=== PATIENT | female | born 1990 | race Two or more races ===

== ENCOUNTER → 2017-04-03 | Outpatient (CLI) | payer OTHER ==
[~2017-04-03] VITALS: Ht 152.4 cm; Wt 77.1 kg
== END | disposition home or self-care (01) ==
LOC: PPHC 10:45
DX: J06.9 Acute upper respiratory infection, unspecified (principal)

== ENCOUNTER → 2017-05-14 | Outpatient (CLI) | payer OTHER | END | disposition home or self-care (01) | LOC: PPHC 13:15 | DX: R55 Syncope and collapse (principal) ==

== ENCOUNTER 2017-05-16 08:52 | Outpatient (CLI) | payer OTHER | END 2017-05-16 09:01 | disposition home or self-care (01) | LOC: LAB 08:52 | DX: R55 Syncope and collapse (principal); R53.1 Weakness ==

== ENCOUNTER 2017-05-29 10:13 | Inpatient (IN) | payer OTHER ==
[~2017-05-29] VITALS: Ht 167.6 cm; Wt 160.0 kg
[2017-05-31] MEDS ORDERED: KEPPRA500 MG PO (08:12)
== END 2017-05-31 10:44 | disposition home or self-care (01) | DRG 101 ==
LOC: ER 10:13 → SURG 20:39 → SEC-K 20:39 → SURG 22:21
PROC: BW28ZZZ Computerized Tomography (CT Scan) of Head (ICD-10-PCS; principal; 2017-05-29)
PROC: B030Y0Z Magnetic Resonance Imaging (MRI) of Brain using Other Contrast, Unenhanced and Enhanced (ICD-10-PCS; 2017-05-29)
PROC: 4A00X4Z Measurement of Central Nervous Electrical Activity, External Approach (ICD-10-PCS; 2017-05-30)
DX: G40.89 Other seizures (principal); R55 Syncope and collapse
CPT/HCPCS: 70545

== ENCOUNTER → 2017-06-15 | Emergency (ER) | payer OTHER ==
[~2017-06-15] VITALS: Ht 170.2 cm; Wt 81.6 kg
[~2017-06-15] MED LIST: KEPPRA500 MG PO
== END | disposition home or self-care (01) ==
LOC: ER 07:18
DX: G40.89 Other seizures (principal)

== ENCOUNTER → 2017-07-03 | Outpatient (CLI) | payer OTHER | END | disposition home or self-care (01) | LOC: NUCLEAR 12:45 | DX: I65.29 Occlusion and stenosis of unspecified carotid artery (principal) ==

== ENCOUNTER → 2017-08-23 15:39 | Outpatient (CLI) | payer OTHER | END | disposition home or self-care (01) | LOC: LAB 15:39 | DX: I11.9 Hypertensive heart disease without heart failure (principal); E11.9 Type 2 diabetes mellitus without complications; E78.2 Mixed hyperlipidemia ==

== ENCOUNTER → 2017-12-29 09:29 | Outpatient (CLI) | payer OTHER | END | disposition home or self-care (01) | LOC: LAB 09:29 | DX: Z00.00 Encounter for general adult medical examination without abnormal findings (principal); I10 Essential (primary) hypertension; E03.8 Other specified hypothyroidism; E78.00 Pure hypercholesterolemia, unspecified; N39.0 Urinary tract infection, site not specified; Z11.4 Encounter for screening for human immunodeficiency virus [HIV]; E55.9 Vitamin D deficiency, unspecified; Z21 Asymptomatic human immunodeficiency virus [HIV] infection status; R79.89 Other specified abnormal findings of blood chemistry ==

== ENCOUNTER 2018-01-17 18:18 | Emergency (ER) | payer OTHER ==
[~2018-01-17] VITALS: Ht 170.2 cm; Wt 83.9 kg
[2018-01-17] MEDS ORDERED: SKELAXIN800 MG PO (20:06)
[2018-01-17] MEDS ORDERED: KETO10TA2 PO (20:06)
== END 2018-01-17 20:56 ==
LOC: ER 18:18
DX: S13.8XXA Sprain of joints and ligaments of other parts of neck, initial encounter (principal); S63.592A Other specified sprain of left wrist, initial encounter; V49.88XA Car occupant (driver) (passenger) injured in other specified transport accidents, initial encounter; M54.5 Low back pain; Y93.89 Activity, other specified; Y92.89 Other specified places as the place of occurrence of the external cause; Y99.8 Other external cause status

== ENCOUNTER 2018-03-15 12:18 | Outpatient (CLI) | payer OTHER ==
[~2018-03-15 12:18] MED LIST changes: +KETO10TA2 PO; +SKELAXIN800 MG PO
== END 2018-03-15 12:22 | disposition home or self-care (01) ==
LOC: LAB 12:18
DX: N39.0 Urinary tract infection, site not specified (principal); J11.1 Influenza due to unidentified influenza virus with other respiratory manifestations; J06.9 Acute upper respiratory infection, unspecified

== ENCOUNTER 2018-12-04 12:07 | Outpatient (CLI) | payer OTHER | END 2018-12-04 12:13 | disposition home or self-care (01) | LOC: LAB 12:07 | DX: J11.1 Influenza due to unidentified influenza virus with other respiratory manifestations (principal); R10.84 Generalized abdominal pain ==

== ENCOUNTER 2019-02-06 15:26 | Outpatient (CLI) | payer OTHER | END 2019-02-06 16:02 | disposition home or self-care (01) | LOC: LAB 15:26 | DX: J03.80 Acute tonsillitis due to other specified organisms (principal) ==

== ENCOUNTER 2019-03-31 11:43 | Outpatient (CLI) | payer OTHER | END 2019-03-31 11:49 | disposition home or self-care (01) | LOC: LAB 11:43 | DX: J11.1 Influenza due to unidentified influenza virus with other respiratory manifestations (principal) ==

== ENCOUNTER → 2019-06-09 13:18 | Outpatient (CLI) | payer OTHER | END | disposition home or self-care (01) | LOC: LAB 13:18 | DX: N92.5 Other specified irregular menstruation (principal); N39.0 Urinary tract infection, site not specified ==

== ENCOUNTER → 2019-06-23 11:05 | Outpatient (CLI) | payer OTHER | END | disposition home or self-care (01) | LOC: LAB 11:05 | DX: E03.8 Other specified hypothyroidism (principal); Z00.00 Encounter for general adult medical examination without abnormal findings; I10 Essential (primary) hypertension; E78.00 Pure hypercholesterolemia, unspecified; N91.0 Primary amenorrhea; E55.9 Vitamin D deficiency, unspecified; Z21 Asymptomatic human immunodeficiency virus [HIV] infection status; R79.89 Other specified abnormal findings of blood chemistry; Z11.4 Encounter for screening for human immunodeficiency virus [HIV] ==

== ENCOUNTER 2019-09-03 15:18 | Emergency (ER) | payer OTHER ==
[~2019-09-03] VITALS: Ht 170.2 cm; Wt 81.6 kg
[2019-09-03] MEDS ORDERED: ZANAFLEX4 M1 PO (16:13)
[2019-09-03] MEDS ORDERED: KETO10TA2 PO (16:13)
[2019-09-03] MEDS ORDERED: LIDODERM1 EACH TOP (16:16)
== END 2019-09-03 16:32 | disposition home or self-care (01) ==
LOC: ER 15:18
DX: S33.5XXA Sprain of ligaments of lumbar spine, initial encounter (principal); X50.9XXA Other and unspecified overexertion or strenuous movements or postures, initial encounter; Y93.89 Activity, other specified; Y92.69 Other specified industrial and construction area as the place of occurrence of the external cause; Y99.8 Other external cause status

== ENCOUNTER → 2019-12-04 | Emergency (ER) | payer OTHER ==
[~2019-12-04] VITALS: Ht 170.2 cm; Wt 83.9 kg
[~2019-12-04] MED LIST changes: +LIDODERM1 EACH TOP; +ZANAFLEX4 M1 PO
== END | disposition home or self-care (01) ==
LOC: ER 16:17
DX: R53.81 Other malaise (principal); B96.0 Mycoplasma pneumoniae [M. pneumoniae] as the cause of diseases classified elsewhere

== ENCOUNTER → 2020-02-03 15:51 | Outpatient (CLI) | payer OTHER | END | disposition home or self-care (01) | LOC: LAB 15:51 | PROVIDERS: ATTEND Obstetrics & Gynecology | DX: N39.0 Urinary tract infection, site not specified (principal) ==

== ENCOUNTER 2020-06-03 15:29 | Emergency (ER) | payer OTHER ==
[~2020-06-03] VITALS: Ht 170.2 cm; Wt 83.9 kg
== END 2020-06-03 17:49 | disposition home or self-care (01) ==
LOC: ER 15:29
DX: J06.9 Acute upper respiratory infection, unspecified (principal); R51.9 Headache, unspecified; Z11.52 Encounter for screening for COVID-19

== ENCOUNTER 2020-08-28 08:07 | Emergency (ER) | payer OTHER ==
[~2020-08-28] VITALS: Ht 170.2 cm; Wt 83.9 kg
== END 2020-08-28 12:38 | disposition home or self-care (01) ==
LOC: ER 08:07
DX: B34.9 Viral infection, unspecified (principal); B96.0 Mycoplasma pneumoniae [M. pneumoniae] as the cause of diseases classified elsewhere; Z11.52 Encounter for screening for COVID-19

== ENCOUNTER 2020-09-21 18:21 | Emergency (ER) | payer OTHER ==
[~2020-09-21] VITALS: Ht 170.2 cm; Wt 81.6 kg
== END 2020-09-21 22:06 | disposition home or self-care (01) ==
LOC: ER 18:21
DX: R55 Syncope and collapse (principal)

== ENCOUNTER 2020-10-01 10:34 | Emergency (ER) | payer OTHER ==
[~2020-10-01] VITALS: Ht 170.2 cm; Wt 81.6 kg
[2020-10-01] MEDS ORDERED: TUSSIN DM SYRU118 ML PO (15:37)
[2020-10-01] MEDS ORDERED: IVERMECTIN3 MG PO (15:37)
== END 2020-10-01 16:02 | disposition home or self-care (01) ==
LOC: ER 10:34
DX: U07.1 COVID-19 (principal); R53.81 Other malaise; R09.81 Nasal congestion; R05 Cough; Z03.818 Encounter for observation for suspected exposure to other biological agents ruled out

== ENCOUNTER 2020-10-04 09:00 | Outpatient (CLI) | payer OTHER ==
[~2020-10-04 09:00] MED LIST changes: +IVERMECTIN3 MG PO; +TUSSIN DM SYRU118 ML PO
== END 2020-10-04 11:00 | disposition home or self-care (01) ==
LOC: ASH CLINIC 09:00
PROVIDERS: ATTEND General Practice
DX: Z23 Encounter for immunization (principal); U07.1 COVID-19

== ENCOUNTER 2020-10-15 13:49 | Emergency (ER) | payer OTHER ==
[~2020-10-15] VITALS: Ht 170.2 cm; Wt 81.6 kg
== END 2020-10-15 19:48 | disposition home or self-care (01) ==
LOC: ER 13:49
DX: E86.0 Dehydration (principal); J06.9 Acute upper respiratory infection, unspecified; Z86.16 Personal history of COVID-19

== ENCOUNTER 2021-01-05 09:00 | Outpatient (CLI) | payer OTHER | END 2021-01-05 09:30 | disposition home or self-care (01) | LOC: PPH VACUNA 09:00 | PROVIDERS: ATTEND Emergency Medicine Pediatric Emergency Medicine | DX: Z23 Encounter for immunization (principal) ==

== ENCOUNTER 2021-02-25 11:10 | Emergency (ER) | payer OTHER ==
[~2021-02-25] VITALS: Ht 170.2 cm; Wt 83.9 kg
[2021-02-25] MEDS ORDERED: PROVENTIL HFA6.7 GM IH (14:18)
[2021-02-25] MEDS ORDERED: TUSSI PRES-B L480 ML PO (14:18)
[2021-02-25] MEDS ORDERED: ZITHROMAX500 MG PO (14:18)
== END 2021-02-25 14:36 | disposition home or self-care (01) ==
LOC: ER 11:10
DX: B34.9 Viral infection, unspecified (principal)

== ENCOUNTER 2021-07-07 16:45 | Outpatient (CLI) | payer OTHER ==
[~2021-07-07 16:45] MED LIST changes: +PROVENTIL HFA6.7 GM IH; +TUSSI PRES-B L480 ML PO; +ZITHROMAX500 MG PO
== END 2021-07-07 16:48 | disposition home or self-care (01) ==
LOC: LAB 16:45
DX: U07.1 COVID-19 (principal)

== ENCOUNTER 2021-10-21 09:33 | Outpatient (CLI) | payer OTHER | END 2021-10-21 09:40 | disposition home or self-care (01) | LOC: SONOGRAMA 09:33 | PROVIDERS: ATTEND Obstetrics & Gynecology | DX: R10.2 Pelvic and perineal pain (principal) ==

== ENCOUNTER 2021-12-01 16:07 | Outpatient (CLI) | payer OTHER | END 2021-12-02 10:11 | disposition home or self-care (01) | LOC: LAB 16:07 | PROVIDERS: ATTEND Obstetrics & Gynecology | DX: N30.00 Acute cystitis without hematuria (principal); N39.0 Urinary tract infection, site not specified ==

== ENCOUNTER 2021-12-13 16:00 | Outpatient (CLI) | payer OTHER | END 2021-12-13 16:05 | disposition home or self-care (01) | LOC: PPH VACUNA 16:00 | PROVIDERS: ATTEND Emergency Medicine Pediatric Emergency Medicine | DX: Z23 Encounter for immunization (principal) ==

== ENCOUNTER → 2022-04-08 07:14 | Outpatient (CLI) | payer OTHER | END | disposition home or self-care (01) | LOC: LAB 07:14 | PROVIDERS: ATTEND Specialist | DX: E11.65 Type 2 diabetes mellitus with hyperglycemia (principal); E11.21 Type 2 diabetes mellitus with diabetic nephropathy; N39.0 Urinary tract infection, site not specified ==

== ENCOUNTER 2022-08-26 08:41 | Outpatient (CLI) | payer OTHER | END 2022-08-26 08:45 | disposition home or self-care (01) | LOC: LAB 08:41 | DX: E11.65 Type 2 diabetes mellitus with hyperglycemia (principal); D64.9 Anemia, unspecified; E78.2 Mixed hyperlipidemia; N39.0 Urinary tract infection, site not specified; E03.9 Hypothyroidism, unspecified ==

== ENCOUNTER 2022-11-06 06:35 | Day surgery (SDC) | payer OTHER ==
[2022-11-02 11:52] LABS: HEMATOCRIT 38.5 % (36.0-45.00); HEMOGLOBIN 12.8 g/dL (12.0-15.00); MEAN CELL VOLUME 89.4 fL (80.00-100.00); MEAN CORPUSCULAR HEMOGLOBIN 29.8 pg (27.00-32.0); MEAN CORPUSCULAR HGB CONC 33.3 g/dl (32.0-36.0); PLATELET COUNT 288 K/uL (150-450); RED BLOOD COUNT 4.31 M/uL (4.00-6.00); RED CELL DISTRIBUTION WIDTH 13.8 % (11.5-14.5)
[2022-11-02 12:11] LABS: INR 1.11; PARTIAL THROMBOPLASTIN TIME 30.8 SECONDS (22.0-34.0); PROTHROMBIN TIME 11.6 SECONDS (9.0-11.5)
[2022-11-02 12:18] LABS: ALBUMIN 3.9 gm/dL (3.4-5.0); BILIRUBIN TOTAL 0.37 mg/dL (0.3-1.2); CALCIUM 8.7 mg/dL (8.5-10.1); CREATININE SERUM 1.04 mg/dL (0.55-1.02); GFR 61.81; GLOBULINA 3.7 G/DL (2.4-3.5); POTASSIUM 4.44 mEq/L (3.5-5.1); TOTAL PROTEIN 7.6 gm/dL (6.4-8.2)
== END 2022-11-06 11:05 | disposition home or self-care (01) ==
LOC: CIR.AMB 06:35
PROVIDERS: ATTEND Obstetrics & Gynecology
DX: N70.91 Salpingitis, unspecified (principal); R10.2 Pelvic and perineal pain; I10 Essential (primary) hypertension; E78.00 Pure hypercholesterolemia, unspecified; E03.9 Hypothyroidism, unspecified; Z20.822 Contact with and (suspected) exposure to COVID-19; Z91.040 Latex allergy status

== ENCOUNTER 2023-03-29 14:28 | Outpatient (CLI) | payer OTHER ==
[2023-03-29 14:51] LABS: URINE APPEARANCE Clear; URINE BILIRRUBIN Negative (NEGATIVE); URINE BLOOD Negative; URINE COLOR Yellow; URINE GLUCOSE Negative (NEGATIVE); URINE LEUKOCYTE Trace; URINE NITRATE Positive; URINE PROTEIN Negative (NEGATIVE); URINE UROBILINOGEN 0.2 E.U./dl
[2023-03-29 14:52] LABS: URINE BACTERIA > 9821.5 uL (0.0-1933); URINE EPITHELIAL CELLS 22.8 uL (0.0-38.8); URINE RBC 7.6 uL (0.0-20.8); URINE WBC 16.2 uL (0.0-23.2)
== END 2023-03-29 14:50 | disposition home or self-care (01) ==
LOC: LAB 14:28
PROVIDERS: ATTEND Obstetrics & Gynecology
DX: N39.0 Urinary tract infection, site not specified (principal)

== ENCOUNTER 2023-04-24 15:00 | Outpatient (CLI) | payer OTHER | END 2023-04-24 15:10 | disposition home or self-care (01) | LOC: PPH VACUNA 15:00 | PROVIDERS: ATTEND Emergency Medicine Pediatric Emergency Medicine | DX: Z23 Encounter for immunization (principal) ==

== ENCOUNTER 2023-09-17 15:00 | Outpatient (CLI) | payer OTHER ==
[~2023-09-17 15:00] MED LIST changes: +DICLOFENAC SODI75 MG PO; +FIORINAL 50-321 EACH PO; +MECLIZINE HCL25 MG PO; +NORFLEX100MG PO
== END 2023-09-17 15:01 | disposition home or self-care (01) ==
LOC: LAB 15:00
PROVIDERS: ATTEND Preventive Medicine Occupational Medicine
DX: J11.1 Influenza due to unidentified influenza virus with other respiratory manifestations (principal); Z20.828 Contact with and (suspected) exposure to other viral communicable diseases

== ENCOUNTER 2023-09-22 15:05 | Emergency (ER) | payer OTHER ==
[~2023-09-22] VITALS: Ht 170.2 cm; Wt 69.9 kg
[2023-09-22] MEDS ORDERED: HYOSCYAMINE SULFATE 0.125 MG TAB.SUBL ONE (16:52)
[2023-09-22] MEDS ORDERED: FAMOTIDINE/PF 20 MG/2 ML VIAL ONE (16:53)
[2023-09-22] MEDS ORDERED: ONDANSETRON HCL 2 MG/ML VIAL ONE (16:53)
[2023-09-22] MEDS ORDERED: ONDANSETRON HCL 2 MG/ML VIAL IV ONE (17:00)
[2023-09-22] MEDS ORDERED: HYOSCYAMINE SULFATE 0.125 MG TAB.SUBL SL ONE (17:00)
[2023-09-22] MEDS ORDERED: 0.9 % SODIUM CHLORIDE 1,000 ML IV ONE (17:00)
[2023-09-22] MEDS ORDERED: FAMOTIDINE/PF 20 MG/2 ML VIAL IV PUSH ONE (17:00)
[2023-09-22 17:07] LABS: HEMATOCRIT 40.9 % (36.0-45.00); MEAN CELL VOLUME 88.9 fL (80.00-100.00); MEAN CORPUSCULAR HEMOGLOBIN 30.4 pg (27.00-32.0); MEAN CORPUSCULAR HGB CONC 34.2 g/dl (32.0-36.0); PLATELET COUNT 287 K/uL (150-450); RED BLOOD COUNT 4.61 M/uL (4.00-6.00); RED CELL DISTRIBUTION WIDTH 13.7 % (11.5-14.5)
[2023-09-22 17:45] LABS: ALBUMIN 3.8 gm/dL (3.4-5.0); BILIRUBIN TOTAL 0.5 mg/dL (0.3-1.2); CALCIUM 8.6 mg/dL (8.5-10.1); CREATININE SERUM 0.84 mg/dL (0.55-1.02); GFR 78.57; GLOBULINA 3.9 G/DL (2.4-3.5); TOTAL PROTEIN 7.7 gm/dL (6.4-8.2)
[2023-09-22 18:09] LABS: POTASSIUM 2.93 mEq/L (3.5-5.1)
[2023-09-22] MEDS ORDERED: POTASSIUM CHLORIDE 10 MEQ CAPSULE PO ONE (18:15)
[2023-09-22] MEDS ORDERED: POTASSIUM CHLORIDE 10 MEQ CAPSULE PO STA (18:17)
[2023-09-22 20:12] LABS: CALCIUM 7.9 mg/dL (8.5-10.1); CREATININE SERUM 0.74 mg/dL (0.55-1.02); GFR 90.95; POTASSIUM 3.31 mEq/L (3.5-5.1)
== END 2023-09-22 20:25 | disposition home or self-care (01) ==
LOC: ER 15:06
PROVIDERS: General Practice
DX: B34.9 Viral infection, unspecified (principal); Z20.822 Contact with and (suspected) exposure to COVID-19; Z91.040 Latex allergy status

== ENCOUNTER 2023-09-27 15:34 | Outpatient (CLI) | payer OTHER | END 2023-09-27 15:41 | disposition home or self-care (01) | LOC: LAB 15:34 | PROVIDERS: ATTEND Internal Medicine Gastroenterology | DX: R19.7 Diarrhea, unspecified (principal); A09 Infectious gastroenteritis and colitis, unspecified ==

== ENCOUNTER 2023-10-09 15:11 | Outpatient (CLI) | payer OTHER | END 2023-10-09 15:12 | disposition home or self-care (01) | LOC: LAB 15:11 | PROVIDERS: ATTEND Preventive Medicine Occupational Medicine | DX: B19.10 Unspecified viral hepatitis B without hepatic coma (principal) ==

== ENCOUNTER 2023-11-03 07:41 | Outpatient (CLI) | payer OTHER ==
[2023-11-03 08:09] LABS: URINE APPEARANCE Cloudy; URINE BILIRRUBIN Negative (NEGATIVE); URINE BLOOD Negative; URINE COLOR Yellow; URINE GLUCOSE Negative (NEGATIVE); URINE KETONE Negative (NEGATIVE); URINE LEUKOCYTE Small; URINE NITRATE Negative; URINE PROTEIN Negative (NEGATIVE); URINE UROBILINOGEN 0.2 E.U./dl
[2023-11-03 08:13] LABS: URINE BACTERIA 8876.4 uL (0.0-1933); URINE EPITHELIAL CELLS 55.3 uL (0.0-38.8); URINE RBC 25.3 uL (0.0-20.8); URINE WBC 118.4 uL (0.0-23.2)
[2023-11-03 08:23] LABS: HEMATOCRIT 38.4 % (36.0-45.00); HEMOGLOBIN 13.4 g/dL (12.0-15.00); MEAN CELL VOLUME 89.7 fL (80.00-100.00); MEAN CORPUSCULAR HEMOGLOBIN 31.2 pg (27.00-32.0); MEAN CORPUSCULAR HGB CONC 34.8 g/dl (32.0-36.0); PLATELET COUNT 280 K/uL (150-450); RED BLOOD COUNT 4.28 M/uL (4.00-6.00); RED CELL DISTRIBUTION WIDTH 14.3 % (11.5-14.5)
[2023-11-03 08:25] LABS: URINE CAST 0.15 uL (0.0-1.40)
[2023-11-03 09:21] LABS: BILIRUBIN TOTAL 0.7 mg/dL (0.3-1.2); CALCIUM 9.2 mg/dL (8.5-10.1); CHOL HDL RATIO 1.7 (0-5.0); CREATININE SERUM 0.96 mg/dL (0.55-1.02); GFR 67.35; GLOBULINA 3.6 G/DL (2.4-3.5); POTASSIUM 4.13 mEq/L (3.5-5.1); T4 FREE 1.14 NG/ML (0.76-1.46); TOTAL PROTEIN 7.6 gm/dL (6.4-8.2); TSH 0.709 uIU/mL (0.358-3.74)
== END 2023-11-03 07:47 | disposition home or self-care (01) ==
LOC: LAB 07:41
PROVIDERS: ATTEND Obstetrics & Gynecology
DX: E03.9 Hypothyroidism, unspecified (principal); I10 Essential (primary) hypertension; Z00.00 Encounter for general adult medical examination without abnormal findings; E78.00 Pure hypercholesterolemia, unspecified; N39.0 Urinary tract infection, site not specified; Z11.4 Encounter for screening for human immunodeficiency virus [HIV]; E55.9 Vitamin D deficiency, unspecified; Z21 Asymptomatic human immunodeficiency virus [HIV] infection status; R79.9 Abnormal finding of blood chemistry, unspecified; R79.89 Other specified abnormal findings of blood chemistry

== ENCOUNTER 2023-12-01 08:50 | Emergency (ER) | payer OTHER ==
[~2023-12-01] VITALS: Ht 170.2 cm; Wt 69.9 kg
[2023-12-01] MEDS ORDERED: KETOROLAC TROMETHAMINE 60 MG VIAL IM ONE (09:30)
== END 2023-12-01 11:04 | disposition home or self-care (01) ==
LOC: ER 08:51
DX: S86.912A Strain of unspecified muscle(s) and tendon(s) at lower leg level, left leg, initial encounter (principal); X58.XXXA Exposure to other specified factors, initial encounter; Y93.89 Activity, other specified; Y92.238 Other place in hospital as the place of occurrence of the external cause; Y99.9 Unspecified external cause status; Z91.040 Latex allergy status

== ENCOUNTER 2024-02-05 10:58 | Outpatient (CLI) | payer OTHER | END 2024-02-05 11:02 | disposition home or self-care (01) | LOC: SONOGRAMA 10:58 | PROVIDERS: ATTEND Internal Medicine Gastroenterology | DX: R10.13 Epigastric pain (principal); K58.9 Irritable bowel syndrome, unspecified; R14.3 Flatulence ==

== ENCOUNTER 2024-02-06 17:11 | Outpatient (CLI) | payer OTHER ==
[2024-02-06 17:55] LABS: HEMATOCRIT 40.4 % (36.0-45.00); HEMOGLOBIN 13.7 g/dL (12.0-15.00); MEAN CELL VOLUME 91.3 fL (80.00-100.00); PLATELET COUNT 237 K/uL (150-450); RED BLOOD COUNT 4.42 M/uL (4.00-6.00); RED CELL DISTRIBUTION WIDTH 13.3 % (11.5-14.5)
[2024-02-06 18:20] LABS: MYCOPLASMA PNEUMONIAE IGM REACTIVE (NO REACTIVE)
== END 2024-02-06 17:16 | disposition home or self-care (01) ==
LOC: LAB 17:11
PROVIDERS: ATTEND Internal Medicine Cardiovascular Disease
DX: B34.9 Viral infection, unspecified (principal); U07.1 COVID-19

== ENCOUNTER 2024-05-12 10:26 | Outpatient (CLI) | payer OTHER ==
[2024-05-14 07:04] LABS: HEPATITIS A ANTIBODY IGG Negative (Negative); HEPATITIS B SURFACE ANTIBODY Reactive (.); HEPATITIS C VIRUS ANTIBODY Non Reactive (Non Reactive)
== END 2024-05-12 10:49 | disposition home or self-care (01) ==
LOC: LAB 10:26
DX: A64 Unspecified sexually transmitted disease (principal); B19.9 Unspecified viral hepatitis without hepatic coma

== ENCOUNTER 2024-08-29 11:27 | Emergency (ER) | payer OTHER ==
[~2024-08-29] VITALS: Ht 170.2 cm; Wt 68.0 kg
[2024-08-29] MEDS ORDERED: KETOROLAC TROMETHAMINE 60 MG VIAL IM ONE (11:45)
== END 2024-08-29 13:39 | disposition home or self-care (01) ==
LOC: ER 11:27
DX: T14.8XXA Other injury of unspecified body region, initial encounter (principal); V49.9XXA Car occupant (driver) (passenger) injured in unspecified traffic accident, initial encounter; Y93.89 Activity, other specified; Y92.413 State road as the place of occurrence of the external cause; Y99.9 Unspecified external cause status; Z91.040 Latex allergy status

== ENCOUNTER 2024-11-07 17:07 | Emergency (ER) | payer OTHER ==
[~2024-11-07] VITALS: Ht 162.6 cm; Wt 63.5 kg
[2024-11-07] MEDS ORDERED: MORPHINE SULFATE 2 MG/ML SYRINGE IV ONE (17:45)
[2024-11-07] MEDS ORDERED: KETOROLAC TROMETHAMINE 30 MG VIAL ONE (17:53)
[2024-11-07] MEDS ORDERED: KETOROLAC TROMETHAMINE 60 MG VIAL IM ONE ×2 (18:00→18:49)
[2024-11-07] MEDS ORDERED: ORPHENADRINE CITRATE 30 MG/ML AMPUL ONE (18:48)
[2024-11-07] MEDS ORDERED: ORPHENADRINE CITRATE 30 MG/ML AMPUL IM ONE (19:00)
[2024-11-07] MEDS ORDERED: BACITRACIN-NEOMYCIN-POLYMYXIN 0.9 GM PACKET TOP ONE (19:22)
[2024-11-07] MEDS ORDERED: TRAMADOL HCL50 MG PO (20:13)
[2024-11-07] MEDS ORDERED: MORPHINE SULFATE 4 MG/ML CARTRIDGE IV ONE (20:30)
== END 2024-11-07 20:24 | disposition home or self-care (01) ==
LOC: ER 17:07
DX: S92.402A Displaced unspecified fracture of left great toe, initial encounter for closed fracture (principal); X58.XXXA Exposure to other specified factors, initial encounter; Y93.89 Activity, other specified; Y92.89 Other specified places as the place of occurrence of the external cause; Y99.9 Unspecified external cause status; Z87.09 Personal history of other diseases of the respiratory system; Z91.040 Latex allergy status

== ENCOUNTER → 2024-11-10 | Outpatient (CLI) | payer OTHER ==
[~2024-11-10] MED LIST changes: +TRAMADOL HCL50 MG PO
== END | disposition home or self-care (01) ==
LOC: MAMO-SONO 12:01
PROVIDERS: ATTEND Surgery
DX: N60.11 Diffuse cystic mastopathy of right breast (principal); N60.12 Diffuse cystic mastopathy of left breast